=== PATIENT | male | born 1975 | race African-American/Black ===

== ENCOUNTER 2022-12-25 08:49 | Emergency (ER) | payer OTHER ==
[~2022-12-25] VITALS: Ht 177.8 cm; Wt 97.5 kg
[2022-12-25 09:08] VITALS: BP 129/82; TEMP 98; O2SAT 100
[2022-12-25] MEDS ORDERED: TRIA60LO8 TP (09:21)
== END 2022-12-25 09:42 | disposition home or self-care (01) ==
LOC: ER 08:49
DX: L25.3 Unspecified contact dermatitis due to other chemical products (principal); E78.5 Hyperlipidemia, unspecified